=== PATIENT | female | born 1960 | race African-American/Black ===

== ENCOUNTER 2017-03-16 16:30 | Emergency (ER) | payer SELFPAY ==
[~2017-03-16] VITALS: Ht 162.6 cm; Wt 90.3 kg
[~2017-03-16 16:30] MED LIST: CLONIDINE 0.2M0.2 MG PO; [UNRECOGNIZED DRUG - REMARK] PO
[2017-03-16] MEDS ORDERED: HYDRALAZINE HCL50 MG ORAL (16:51)
[2017-03-16] MEDS ORDERED: HYDROCHLOROTHIA25 MG ORAL (16:51)
[2017-03-16] MEDS ORDERED: POTASSIUM CHLO20 ME2 ORAL (16:51)
[2017-03-16] MEDS ORDERED: ADALAT20 MG ORAL (16:51)
[2017-03-16] MEDS ORDERED: GLIMEPIRIDE1 MG ORAL (16:51)
[2017-03-16] MEDS ORDERED: METFORMIN HCL500 M1 ORAL (16:51)
[2017-03-16] MEDS ORDERED: DIOVAN320 MG ORAL (16:51)
[2017-03-16] MEDS ORDERED: IBUPROFEN600 MG ORAL (17:28)
[2017-03-16] MEDS ORDERED: ROBAXIN-750750 MG PO (17:28)
[2017-03-16] MEDS ORDERED: Methocarbamol 750mg tab ORAL ONE (17:30)
[2017-03-16] MEDS ORDERED: Ketorolac 60mg Inj IM ONE (17:30)
[2017-03-16 17:44] VITALS: BP_SYST 162; BP_SYST 171; BP_DIAS 84; BP_DIAS 87
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
== END 2017-03-16 17:45 | disposition home or self-care (01) ==
LOC: EMR 17:05
DX: M25.511 Pain in right shoulder (principal); R51 Headache; V49.40XA Driver injured in collision with unspecified motor vehicles in traffic accident, initial encounter; Y92.410 Unspecified street and highway as the place of occurrence of the external cause; I10 Essential (primary) hypertension; E11.9 Type 2 diabetes mellitus without complications
CPT/HCPCS: 96372; 99284